=== PATIENT | male | born 1955 | race Caucasian/White ===

== ENCOUNTER 2020-03-09 07:12 | Emergency (ER) | payer BC, OTHER ==
[2020-03-09] MEDS ORDERED: cefTRIAXone 2 GM in Sodium Chloride 0.9% 100 ML IV SCH (07:45)
[2020-03-09] MEDS ORDERED: Sodium Chloride 0.9% 10 ML Syringe FLUSH PRN (07:45)
--- NOTE | 2020-03-09 07:49 | EDM.PDOC ---
ED HPI GENERAL MEDICAL PROBLEM - General Chief Complaint: Genitourinary Problem Stated Complaint: POSS UTI/FEVER Time Seen by Provider: 03/09/20 07:26 Source of Information: Reports: Patient History Limitations: Reports: No Limitations - History of Present Illness INITIAL COMMENTS - FREE TEXT/NARRATIVE: 64-year-old male presents to the ED with dysuria urgency and frequency for 2 days. Associated development of fever with some mild chills last night. Left flank pain as well. He states this is happened a few times in the past. He always has microscopic hematuria and did have a cystoscopy many years ago with Dr. Salcedo. His PSA last year was normal. He has an appointment to see Dr. Gimenez tomorrow for complete physical exam. He was up every hour pretty well voiding last night. Feels constant burning discomfort in the end of his penis. He is circumcised. No history of kidney stones. States his urine flow was fairly normal not bifid or split. No known history of urinary tract stricture. Onset: Gradual Onset Date: 03/08/20 (Started to have some dysuria yesterday morning.) Duration: Hour(s):, Getting Worse Location: Reports: Other (Dysuria urgency frequency) Quality: Reports: Other Severity: Moderate (Dysuria) Improves with: Reports: None Worsens with: Reports: None Context: Reports: Other (Spontaneous occurrence). 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: Acetaminophen (Taken this morning prior to coming to the ED.) - Related Data Allergies Allergy/AdvReac Type Severity Reaction Status Date / Time No Known Allergies Allergy Verified 03/09/20 07:34 Home Meds: Home Meds Cefdinir [Omnicef] 300 mg PO BID #18 cap 03/09/20 [Rx] Fluconazole [Diflucan] 150 mg PO ONETIME #1 tab 03/09/20 [Rx] Past Medical History Cardiovascular History: Reports: Hypertension - Past Surgical History GI Surgical History: Reports: Appendectomy Social & Family History - Tobacco Use Smoking Status *Q: Never Smoker - Recreational Drug Use Recreational Drug Use: No - Living Situation & Occupation Living situation: Reports: Occupation: Retired (Retired in November of this year) ED ROS GENERAL - Review of Systems Review Of Systems: See Below Constitutional: Reports: Fever, Malaise, Weakness, Fatigue HEENT: Reports: No Symptoms Respiratory: Reports: No Symptoms Cardiovascular: Reports: No Symptoms Endocrine: Reports: No Symptoms GI/Abdominal: Reports: No Symptoms : Reports: Dysuria (Left side), Flank Pain, Frequency, Urgency ([place] 2 days) Musculoskeletal: Reports: No Symptoms Skin: Reports: No Symptoms Neurological: Reports: No Symptoms Psychiatric: Reports: No Symptoms Hematologic/Lymphatic: Reports: No Symptoms Immunologic: Reports: No Symptoms ED EXAM, RENAL/ - Physical Exam Exam: See Below Exam Limited By: No Limitations General Appearance: Alert, WD/WN, No Apparent Distress, Other Neck: Normal Inspection, Supple, Non-Tender, Full Range of Motion. No: Carotid Bruit, Lymphadenopathy (L), Lymphadenopathy (R) Respiratory/Chest: No Respiratory Distress, Lungs Clear, Normal Breath Sounds, No Accessory Muscle Use, Chest Non-Tender Cardiovascular: Normal Peripheral Pulses, Regular Rate, Rhythm, No Edema, No Gallop, No Murmur, No Rub GI/Abdominal: Normal Bowel Sounds, Soft, Non-Tender, No Organomegaly, No Abnormal Bruit (Male) Exam: No Hernia, Normal Inspection, Circumcised, Other (Appendectomy scar) Back Exam: Normal Inspection, Full Range of Motion. No: CVA Tenderness (L), CVA Tenderness (R) Extremities: Normal Inspection, Normal Range of Motion, Non-Tender Neurological: Alert, Oriented, CN II-XII Intact, Normal Cognition, Normal Gait Psychiatric: Normal Affect, Normal Mood Skin Exam: Warm, Dry, Intact, Normal Color, No Rash Course - Vital Signs Last Recorded V/S: Last Vital Signs Temp 37.2 C 03/09/20 07:32 Pulse 81 03/09/20 07:32 Resp 16 03/09/20 07:32 BP 181/91 H 03/09/20 07:32 Pulse Ox 100 03/09/20 07:32 - Orders/Labs/Meds Orders: Active Orders 24 hr Category Date Time Status Bladder Scan [RC] ASDIRECTED Care 03/09/20 07:44 Active Peripheral IV Care [RC] . DIRECTED Care 03/09/20 07:45 Active Abdomen 1V Flat [CR] Stat Exams 03/09/20 07:54 Taken CULTURE URINE [RM] Stat Lab 03/09/20 07:30 Received Peripheral IV Insertion Adult [OM.PC] Stat Oth 03/09/20 07:45 Ordered Labs: Laboratory Tests 03/09/20 03/09/20 03/09/20 Range/Units 07:30 07:53 07:53 WBC 16.15 H (4.23-9.07) K/mm3 RBC 5.43 (4.63-6.08) M/mm3 Hgb 15.9 (13.7-17.5) gm/dl Hct 48.0 (40.1-51.0) % MCV 88.4 (79.0-92.2) fl MCH 29.3 (25.7-32.2) pg MCHC 33.1 (32.2-35.5) g/dl RDW Std Deviation 45.8 H (35.1-43.9) fL Plt Count 209 (163-337) K/mm3 MPV 10.6 (9.4-12.3) fl Neutrophils % (Manual) 87 H (40-60) % Band Neutrophils % 0 (0-10) % Lymphocytes % (Manual) 6 L (20-40) % Atypical Lymphs % 0 % Monocytes % (Manual) 7 (2-10) % Eosinophils % (Manual) 0 L (0.8-7.0) % Basophils % (Manual) 0 L (0.2-1.2) Platelet Estimate Adequate RBC Morph Comment Normal Sodium 140 (136-145) mEq/L Potassium 3.6 (3.5-5.1) mEq/L Chloride 104 (98-107) mEq/L Carbon Dioxide 24 (21-32) mEq/L Anion Gap 15.6 H (5-15) BUN 19 H (7-18) mg/dL Creatinine 1.1 (0.7-1.3) mg/dL Est Cr Clr Drug Dosing 63.11 mL/min Estimated GFR (MDRD) > 60 (>60) mL/min BUN/Creatinine Ratio 17.3 (14-18) Glucose 141 H (80-115) mg/dL Calcium 8.7 (8.5-10.1) mg/dL Total Bilirubin 0.5 (0.2-1.0) mg/dL AST 24 (15-37) U/L ALT 51 (16-63) U/L Alkaline Phosphatase 104 (46-116) U/L C-Reactive Protein 0.6 (<1.0) mg/dL Total Protein 7.5 (6.4-8.2) g/dl Albumin 3.9 (3.4-5.0) g/dl Globulin 3.6 gm/dL Albumin/Globulin Ratio 1.1 (1-2) Urine Color Yellow (Yellow) Urine Appearance Clear (Clear) Urine pH 5.5 (5.0-8.0) Ur Specific [place] > or = 1.030 (1.005-1.030) Urine Protein Trace H (Negative) Urine Glucose (UA) Negative (Negative) Urine Ketones Trace H (Negative) Urine Occult Blood 2+ H (Negative) Urine Nitrite Negative (Negative) Urine Bilirubin Negative (Negative) Urine Urobilinogen 0.2 (0.2-1.0) Ur Leukocyte Esterase 1+ H (Negative) Urine RBC >100 H (0-5) /hpf Urine WBC 50-75 H (0-5) /hpf Ur Epithelial Cells 0-5 (0-5) /hpf Urine Bacteria Few (FEW) /hpf Urine Mucus Moderate H (FEW) /hpf Meds: Medications Discontinued Medications Generic Name Dose Route Start Last Admin Trade Name Freq PRN Reason Stop Dose Admin Ceftriaxone Sodium 2 gm/ 100 mls @ 200 mls/hr 03/09/20 07:45 03/09/20 07:54 Sodium Chloride IV 200 mls/hr Q24H JONATHAN Administration Sodium Chloride 10 ml 03/09/20 07:45 03/09/20 07:54 Saline Flush FLUSH 10 ml ASDIRECTED PRN Administration Keep Vein Open - Radiology Interpretation Free Text/Narrative:: 64-year-old male presents to the ED with acute onset of dysuria urgency and frequency starting yesterday morning which is progressed in intensity and severity. He was up almost every hour voiding last night. He has developed left flank pain and associated fever with no real chills or Rigors. He has had several bouts of urinary tract infection in the past. He has not had any recent urological investigations. No known stone disease. He had did have [address] Salcedo several years ago because of persistent microscopic hematuria. No other abnormalities were identified. He does get occasional feeling of incomplete bladder emptying. Nocturia usually only x1 or 2. [place] any change in urinary stream. He is afebrile at the time of my exam and therefore blood cultures will not be ordered. Routine labs including a uri nalysis and CBC CRP and CMP ordered. 1 x-ray of the abdomen i.e. KUB. Letter scan will be done as well. Plan will be to give him Rocephin 2 g intravenously while in the department. - Re-Assessments/Exams Free Text/Narrative Re-Assessment/Exam: 03/09/20 07:55 Bladder scan reported to contain only 5 mils post residual urine. 03/09/20 08:27 White count is elevated at 16.15. Differential pending hemoglobin is 15.9 with hematocrit of 48.0 platelet counts 209,000. The urinalysis shows specific gravity greater than 1.030 suggesting concentrated urine. Trace of protein trace of ketones 2+ occult blood positive leukocyte esterase 1+ greater than 100 RBCs per high-power field and greater than 50-75 white blood cells per high-power field. Few bacteria identified. KUB reveals a fair amount of stool throughout the colon. In the rectal vault there is a density with surrounding air and I suspect is still a stool bolus. Did not feel it was a bladder stone. 03/09/20 08:44 Chemistry shows a sodium of 140 potassium of 3.6. Chloride 104 with a bicarb of 24. Anion gap is 15.6 with a BUN of 19. Creatinine is 1.1 GFR is greater than 60. Glucose 141 with a calcium of 8.7. Liver function is normal. C-reactive protein was 0.6. Total protein 7.5 with an albumin fraction of 3.9. Patient wishes to try things as an outpatient. He will continue Mo cristino 600 mg every 6 hours as needed for fever relief. Antibiotic will be Omnicef 300 mg twice daily for the next 9 days starting tomorrow morning. Has a follow-up appoint with Dr. Gimenez tomorrow morning for checkup. I would suggest that he have CT of the abdomen and pelvis with and without contrast prior to seeing urology for consultation in regards to possible stone in the bladder or kidney or ureter causing a nidus for recurrent infections. May well need cystoscopy to look for urethral stricture as well. Point to give him Diflucan 150 mg by mouth as he states he always gets a oral candidiasis from antibiotic therapy. Departure - Departure Time of Disposition: 08:46 Disposition: Home, Self-Care 01 Condition: Fair Clinical Impression: Bacterial urinary tract infection - Discharge Information *PRESCRIPTION DRUG MONITORING PROGRAM REVIEWED*: Not Applicable *COPY OF PRESCRIPTION DRUG MONITORING REPORT IN PATIENT FABIOLA: Not Applicable Prescriptions: Fluconazole [Diflucan] 150 mg PO ONETIME #1 tab Cefdinir [Omnicef] 300 mg PO BID #18 cap Instructions: Pyelonephritis, Adult, [id number] Referrals: PCP,None [Primary Care Provider] - Forms: ED Department Discharge Additional Instructions: Evaluation in the emergency room today in regards to development of urinary tract symptoms with dysuria urgency and frequency of urination over the last 2 days. Development of left flank pain and associated fever and mild chills overnight. As you described you have been having similar type symptoms for a lengthy period of time on a recurrent basis. Examination today revealed an elevated white count at 16,100 suggesting an significant bacterial infection. Urinalysis is strongly positive for infective process. X-ray of the abdomen did not reveal anything obvious but there was a large amount of stool throughout the colon which obscures the kidneys and bladder. You were treated with intravenous Rocephin 2 g which will start to work in 2 to 4 hours and to start to bring the infection under control. You will need to take further oral antibiotic therapy Omnicef 300 mg twice daily for the next 9 days to clear up this infection completely. He also provided Diflucan 150 mg tablet by mouth to prevent oral candidiasis which she should take tomorrow. As you discussed you have a follow- up appoint with Dr. Gimenez tomorrow. You need further investigations by way of CT of the abdomen and pelvis with IV and contrast and without contrast to look for a stone in the kidney ureter or bladder that is acting as a recurrent source of infection. Bladder scan done today revealed only 5 mils of urine left in your bladder after voiding suggesting that the prostate is not part of the problem. 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 Continue Motrin oral Tylenol for fever relief as needed. Expect marked improvement over the next 36 hours with absence of fever and relief of back pain. Sepsis Event Note (ED) - Evaluation Sepsis Screening Result: No Definite Risk - Focused Exam Vital Signs: Vital Signs Temp Pulse Resp BP Pulse Ox 03/09/20 07:32 37.2 C 81 16 181/91 H 100 - My Orders Last 24 Hours: My Active Orders 03/09/20 07:30 CULTURE URINE [RM] Stat 03/09/20 07:44 Bladder Scan [RC] ASDIRECTED 03/09/20 07:45 Peripheral IV Care [RC] . DIRECTED Peripheral IV Insertion Adult [OM.PC] Stat 03/09/20 07:54 Abdomen 1V Flat [CR] Stat - Assessment/Plan Last 24 Hours: My Active Orders 03/09/20 07:30 CULTURE URINE [RM] Stat 03/09/20 07:44 Bladder Scan [RC] ASDIRECTED 03/09/20 07:45 Peripheral IV Care [RC] . DIRECTED Peripheral IV Insertion Adult [OM.PC] Stat 03/09/20 07:54 Abdomen 1V Flat [CR] Stat
--- NOTE | 2020-03-10 05:24 | CR ---
Abdomen: Supine view of the abdomen was obtained. Comparison: No previous abdominal imaging. Bowel gas pattern appears within normal limits. Minimal degenerative change is scattered within the spine. No soft tissue abnormality is seen. Calcifications are noted within the pelvis which are felt compatible with phleboliths. Impression: 1. Nothing acute is appreciated on supine abdominal x-ray. Diagnostic code #1 This report was dictated in MDT
== END 2020-03-09 09:00 | disposition home or self-care (01) ==
LOC: JD.ED 07:12
DX: N39.0 Urinary tract infection, site not specified (principal); B96.89 Other specified bacterial agents as the cause of diseases classified elsewhere; I10 Essential (primary) hypertension
CPT/HCPCS: 36415; 51798; 74018; 80053; 81001; 85007; 85027; 86140; 87086; 87088; 87186; 96365; 99283; J0696; J7050

== ENCOUNTER 2020-06-19 07:20 | Day surgery (SDC) | payer OTHER ==
[~2020-06-19 07:20] MED LIST: Lactated Ringers 1,000 ML IV SCH; Lidocaine 1% 4 ML ONE; Lidocaine 1%/Sod Bicarbonate in NS 8.4% 1 ML Syringe IDERM PRN; Midazolam 1 MG/ML 2 ML SDV ONE; Ondansetron 4 MG/2 ML SDV ONE; Propofol 200 MG/20 ML SDV ONE; Sodium Chloride 0.9% 10 ML Syringe FLUSH PRN; fentaNYL 250 MCG/5 ML SDV ONE
[2020-06-19] MEDS ORDERED: Bupivacaine 0.25% 10 ML SDV ONE (07:29)
--- NOTE | 2020-06-19 07:49 | PCM.PREANE ---
Preanesthetic Assessment - Procedure Proposed Procedure: Right KVA - Anesthesia/Transfusion/Family Hx Anesthesia History: Unknown (Does get nausea with motion in boat, car, ect...) Type of Anesthesia Reaction: Excessive Nausea/Vomiting Family History of Anesthesia Reaction: No Transfusion History: No Prior Transfusion(s) - Review of Systems General: No Symptoms Pulmonary: No Symptoms Cardiovascular: Dyspnea on Exertion Gastrointestinal: No Symptoms Neurological: No Symptoms Other: Reports: Diabetes (A1 5.7) - Physical Assessment NPO Status Date: 06/18/20 NPO Status Time: 00:00 Height: 1.83 m Weight: 106.6 kg ASA Class: 2 Mental Status: Alert & Oriented x3 Airway Class: Mallampati = 2 Dentition: Reports: [place](s) Thyro-Mental Finger Breadths: 2 Mouth Opening Finger Breadths: 2 ROM/Head Extension: Full Lungs: Clear to Auscultation, Normal Respiratory Effort Cardiovascular: Regular Rate, Regular Rhythm - Lab Values: Laboratory Last Values POC Glucose 105 mg/dL (80-115) 06/19/20 07:38 MRSA (PCR) Negative 06/06/20 14:33 - Imaging/EKG Impressions: EKG SR RBBB rate 71 - Allergies Allergies/Adverse Reactions: Allergies Allergy/AdvReac Type Severity Reaction Status Date / Time No Known Allergies Allergy Verified 06/18/20 15:22 - Blood Blood Available: No Product(s) Available: None - Anesthesia Plan Pre-Op Medication Ordered: None - Acknowledgements Anesthesia Type Planned: General Anesthesia Pt an Appropriate Candidate for the Planned Anesthesia: Yes Alternatives and Risks of Anesthesia Discussed w Pt/Guardian: Yes Pt/Guardian Understands and Agrees with Anesthesia Plan: Yes PreAnesthesia Questionnaire HEENT History: Reports: Other (See Below) Other HEENT History: tinnitis, wears glasses Cardiovascular History: Reports: High Cholesterol, Hypertension, Other (See Below) Other Cardiovascular History: Right bundle branch block Respiratory History: Reports: None Gastrointestinal History: Reports: Colon Polyp Genitourinary History: Reports: Other (See Below) Other Genitourinary History: hematuria 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 Musculoskeletal History: Reports: Back Pain, Chronic, Osteoarthritis Neurological History: Reports: None Psychiatric History: Reports: None Endocrine/Metabolic History: Reports: Diabetes, Type II, Obesity/BMI 30+ Hematologic History: Reports: None Immunologic History: Reports: None Oncologic (Cancer) History: Reports: None Dermatologic History: Reports: Other (See Below) Other Dermatologic History: lipoma with removal to right hip - Infectious Disease History Infectious Disease History: Reports: None - Past Surgical History Head Surgeries/Procedures: Reports: None HEENT Surgical History: Reports: None Cardiovascular Surgical History: Reports: None Respiratory Surgical History: Reports: None GI Surgical History: Reports: Appendectomy, Colonoscopy Male Surgical History: Reports: Vasectomy, Other (See Below) Other Male Surgeries/Procedures: cystoscopy Endocrine Surgical History: Reports: None Neurological Surgical History: Reports: None Musculoskeletal Surgical History: Reports: Other (See Below) Other Musculoskeletal Surgeries/Procedures:: right knee meniscus tear Oncologic Surgical History: Reports: None - SUBSTANCE USE Tobacco Use Status *Q: Former Tobacco User Tobacco Use Within Last Twelve Months: No Second Hand Smoke Exposure: No Days Per Week of Alcohol Use: 1 Number of Drinks Per Day: 0 Total Drinks Per Week: 0 Recreational Drug Use History: No - HOME MEDS Home Medications: Home Meds Enalapril [Vasotec] 10 mg PO DAILY 06/18/20 [History] Acetaminophen/HYDROcodone [[place] 325-5 MG] 1 - 2 tab PO Q6H PRN #20 tablet 06/19/20 [Rx] Aspirin [Aspirin EC] 325 mg PO BID #84 tab 06/19/20 [Rx] - CURRENT (IN HOUSE) MEDS Current Meds: Current Medications Epinephrine HCl (Adrenalin) 3 mg IRR ONETIME JONATHAN Stop: 06/19/20 12:00 Lactated Ringer's (Ringers, Lactated) 1,000 mls @ 125 mls/hr IV ASDIRECTED JONATHAN Stop: 06/19/20 23:00 Lidocaine/Sodium Bicarbonate (Buffered Lidocaine 1% In Ns 8.4%) 0.25 ml IDERM ONETIME PRN PRN Reason: Prior to IV Start Stop: 06/19/20 18:00 Sodium Chloride (Saline Flush) 10 ml FLUSH ASDIRECTED PRN PRN Reason: Keep Vein Open Stop: 06/19/20 18:00 Discontinued Medications Bupivacaine HCl (Sensorcaine-Mpf 0.25%) Confirm Administered Dose 10 ml .ROUTE .STK-MED ONE Stop: 06/19/20 07:30 Fentanyl (Sublimaze) Confirm Administered Dose 250 mcg .ROUTE .STK-MED ONE Stop: 06/19/20 07:15 Lidocaine HCl (Xylocaine-Mpf 1%) Confirm Administered Dose 4 mls @ as directed .ROUTE .STK-MED ONE Stop: 06/19/20 07:14 Midazolam HCl (Versed 1 Mg/Ml) Confirm Administered Dose 2 mg .ROUTE .STK-MED ONE Stop: 06/19/20 07:14 Ondansetron HCl (Zofran) Confirm Administered Dose 4 mg .ROUTE .STK-MED ONE Stop: 06/19/20 07:14 Propofol (Diprivan 20 Ml) Confirm Administered Dose 200 mg .ROUTE .STK-MED ONE Stop: 06/19/20 07:14
[2020-06-19] MEDS ORDERED: ceFAZolin 1 GM Vial ONE (07:58)
[2020-06-19] MEDS ORDERED: EPINEPHrine 1 MG/ML 30 ML MDV IRR SCH (08:00)
[2020-06-19] MEDS ORDERED: Scopolamine 1.5 MG Transdermal Patch TOP ONE (08:00)
[2020-06-19] MEDS ORDERED: HYDROmorphone 0.5 MG/0.5 ML Syringe IVPUSH PRN (09:03)
[2020-06-19] MEDS ORDERED: Ondansetron 4 MG/2 ML SDV IVPUSH PRN (09:03)
[2020-06-19] MEDS ORDERED: fentaNYL 100 MCG/2 ML SDV IVPUSH PRN (09:03)
[2020-06-19] MEDS ORDERED: Ketorolac 30 MG/ML SDV ONE (09:09)
--- NOTE | 2020-06-19 09:50 | PCM.POSTAN ---
POST ANESTHESIA ASSESSMENT - MENTAL STATUS Mental Status: Somnolent - VITAL SIGNS Vital Signs: Last Vital Signs Temp 97.2 F 06/19/20 07:15 Pulse 83 06/19/20 07:15 Resp 16 06/19/20 07:15 BP 145/88 H 06/19/20 08:40 Pulse Ox 97 06/19/20 07:15 86 9 96.9 121/84 95% - RESPIRATORY Respiratory Status: Respiratory Rate WNL, Airway Patent, O2 Saturation Stable, Supplemental Oxygen - CARDIOVASCULAR CV Status: Pulse Rate WNL, Blood Pressure Stable - GASTROINTESTINAL GI Status: No Symptoms - PAIN Pain Score: 0 - POST OP HYDRATION Hydration Status: Adequate & Stable
--- NOTE | 2020-06-19 11:01 | PCM48HPAN ---
Post Anesthesia Note - EVALUATION WITHIN 48HRS OF ANESTHETIC Vital Signs in Normal Range: Yes Patient Participated in Evaluation: Yes Respiratory Function Stable: Yes Airway Patent: Yes Cardiovascular Function Stable: Yes Hydration Status Stable: Yes Pain Control Satisfactory: Yes Nausea and Vomiting Control Satisfactory: Yes Mental Status Recovered: Yes Vital Signs: Last Vital Signs Temp 97.7 F 06/19/20 10:30 Pulse 77 06/19/20 10:30 Resp 10 L 06/19/20 10:30 BP 136/88 06/19/20 10:30 Pulse Ox 97 06/19/20 10:30
--- NOTE | 2020-07-03 11:21 | PCM.OPNOTE ---
- General Post-Op/Procedure Note Date of Surgery/Procedure: 06/19/20 Operative Procedure(s): right knee video arthroscopy with partial median meniscectomy and partial synovectomy Pre Op Diagnosis: right knee medial meniscus tear Post-Op Diagnosis: same with synovitis and fat pad impingement Anesthesia Technique: General LMA, Local Primary Surgeon: Josiah Stewatr Anesthesia Provider: Kiersten Espino Weave Defect Charting Clerk: Mayi Richards EBShelley in mLs: 5 Complications: None Condition: Good
--- NOTE | 2020-07-03 11:52 | OR ---
DATE OF OPERATION: 06/19/2020 SURGEON: Josiah Stewart MD OPERATION PERFORMED: Right knee video arthroscopy, partial medial meniscectomy, and partial synovectomy. PREOPERATIVE DIAGNOSIS: Right knee medial meniscus tear. POSTOPERATIVE DIAGNOSIS: Right knee medial meniscus tear with synovitis and fat pad impingement. ANESTHESIA: General LMA with local. ANESTHESIA PROVIDER: Kiersten Espino CRNA CARPENTRY FOREMAN: Mayi Richards PA-C ESTIMATED BLOOD LOSS: 5 mL. COMPLICATIONS: None. CONDITION: Stable. DESCRIPTION OF PROCEDURE: The patient was identified in the preoperative holding area where the proper site was marked and identified by the surgeon. The patient was taken back to the operative theater where, after adequate anesthesia, the patient's left lower extremity was placed in a well leg reyes. The right lower extremity had a nonsterile tourniquet applied. It was then placed in a C-clamp reyes. Foot of the bed was then lowered. The right lower extremity was then sterilely prepped and draped in the usual sterile fashion. OR time-out was performed. The patient received 2 g of IV Ancef. The right lower extremity was then exsanguinated, and tourniquet was insufflated to 250 mmHg. A standard anterolateral portal incision was made. Scope trocar was introduced. The patient was noted to have significant overgrowth of the fat pad along with significant synovitis anteriorly. He had grade 1, possible grade 2 chondromalacia of the patella, but no loose cartilage flaps. Attention was turned to the medial compartment. Anteromedial portal was created with the use of a spinal needle. The patient was noted to have a posterior 3rd horn tear of the medial meniscus. I took roughly 10% to 15% of the posterior horn of the medial meniscus back to a stable rim. The rest of it was found to be intact including intact root. At this time, the patient had minimal grade 1 chondromalacia to the medial compartment. ACL was intact on the notch. Lateral compartment showed no chondromalacial changes. At this time, we resected the anterior fat pad and synovium back to a stable rim. The patient at this time had excess saline drained. 3-0 nylon suture was used for closure of the skin. The patient had a sterile soft dressing applied and was sent to the PACU in stable condition. MMODAL /[id number]
== END 2020-06-19 12:20 | disposition home or self-care (01) ==
LOC: JD.SDS 07:20
PROVIDERS: ATTEND Orthopaedic Surgery
DX: S83.241A Other tear of medial meniscus, current injury, right knee, initial encounter (principal); M65.861 Other synovitis and tenosynovitis, right lower leg; M94.261 Chondromalacia, right knee; I10 Essential (primary) hypertension; E78.00 Pure hypercholesterolemia, unspecified; E78.49 Other hyperlipidemia; E11.9 Type 2 diabetes mellitus without complications; E66.9 Obesity, unspecified; Z79.899 Other long term (current) drug therapy; Z98.890 Other specified postprocedural states; Z87.891 Personal history of nicotine dependence; Z68.32 Body mass index [BMI] 32.0-32.9, adult; Z79.82 Long term (current) use of aspirin
CPT/HCPCS: 29875; 29881; 82962; 87641; A9270; J0690; J1885; J2001; J2250; J2405; J2704; J3010; J3490; J7120; 01400

== ENCOUNTER 2024-07-19 11:46 | Emergency (ER) | payer MEDICARE, BC | END 2024-07-19 13:03 | disposition home or self-care (01) | LOC: JD.ED 11:46 | DX: S29.012A Strain of muscle and tendon of back wall of thorax, initial encounter (principal); M45.4 Ankylosing spondylitis of thoracic region; I10 Essential (primary) hypertension; M19.90 Unspecified osteoarthritis, unspecified site; E11.9 Type 2 diabetes mellitus without complications; E66.9 Obesity, unspecified; Z90.49 Acquired absence of other specified parts of digestive tract; Z79.82 Long term (current) use of aspirin; Z79.899 Other long term (current) drug therapy; Z68.34 Body mass index [BMI] 34.0-34.9, adult; V49.40XA Driver injured in collision with unspecified motor vehicles in traffic accident, initial encounter | CPT/HCPCS: 72072; 72072-26; 99284 ==